=== PATIENT | female | born 1970 | race American Indian/Alaskan Native ===

== ENCOUNTER 2016-11-02 08:10 | Outpatient (CLI) | payer OTHER ==
--- NOTE | 2016-11-02 13:19 | Mammography Report ---
BILATERAL DIGITAL SCREENING MAMMOGRAM with CAD: 11/02/16 08:10:00 CLINICAL: Routine screening. COMPARISON:07/11/15 FINDINGS: The breasts are heterogeneously dense, which may obscure small masses. A right asymmetry on the MLO view requires additional imaging.No architectural distortion or suspicious calcifications.The left breast is negative. IMPRESSION: Right asymmetry requiring further workup. BI-RADS CATEGORY: 0 -- Additional Imaging Evaluation Required RECOMMENDATION: Recall for a right MLO spot compression view and right breast ultrasound if needed. ACR BI-RADS MAMMOGRAPHIC CODES: 0 = Needs additional imaging evaluation; 1 = Negative; 2 = Benign; 3 = Probably benign; 4 = Suspicious; 5 = Malignant; 6 = Known biopsy-proven malignancy COMMENT: 1. Dense breast tissue, i.e., adenosis, fibrocystic changes, etc., may obscure an underlying neoplasm. 2. Approximately 10% of cancers are not detected with mammography. 3. A negative mammography report should not delay biopsy if a clinically suspicious mass is present. COMMENT: Patient follow-up letters are generated via our [employer] application.
== END 2016-11-02 08:11 | disposition home or self-care (01) ==
LOC: SPVWC 08:10
PROVIDERS: ATTEND Obstetrics & Gynecology
DX: Z12.31 Encounter for screening mammogram for malignant neoplasm of breast (principal)
CPT/HCPCS: 77067; G0202

== ENCOUNTER 2016-11-08 08:47 | Outpatient (CLI) | payer OTHER ==
--- NOTE | 2016-11-08 10:14 | Ultrasound Report ---
Diagnostic right mammogram and targeted right breast ultrasound. History: Recall for right asymmetry. Findings: On both the spot compression image and a 9 degree lateral medial view, there is persistence of a low density nodular asymmetry in the upper right breast. The margins are circumscribed. On mammogram from the measures approximately 6 mm in maximum dimension. Sonographic evaluation of the upper right breast demonstrates 3 circumscribed ovoid shaped lesions in the upper breast, one of which demonstrates a central hyperechoic region, probably representing an intramammary node. This measures 7 x 4 mm. 2 additional circumscribed lesions measuring under 5 mm in diameter may represent complex cysts. No acoustic shadowing or other suspicious findings are seen. Impression: No suspicious findings. 3 small benign-appearing lesions are seen in the upper right breast, one of which probably accounts for the mammographic nodular density. BI-RADS code: 2. Recommendation: Annual screening.
== END 2016-11-08 08:48 | disposition home or self-care (01) ==
LOC: MAMMO 08:47
PROVIDERS: ATTEND Obstetrics & Gynecology
DX: N64.59 Other signs and symptoms in breast (principal); N64.89 Other specified disorders of breast
CPT/HCPCS: 76642; G0206